=== PATIENT | male | born 1980 | race Caucasian/White ===

== ENCOUNTER 2017-02-22 12:51 | Emergency (ER) | payer OTHER ==
--- NOTE | ~2017-02-22 | CT4 ---
[facility] A Service of [facility] / [facility] RADIOLOGY TEXT RESULTS PATIENT: ERIKA CLOUD LOCATION: [facility] : [birth year] UNIT #: [id number] AGE: [address]: Dilan Cartwright MD SEX: M ORDER DR: [id number] [facility]. [place], [place] [address] [id number] E MR#: [id number] #: [id number] NAME: ERIKA CLOUD : 1980 SEX: M STUDY DATE/TIME: 02/22/2017 13:10 UNIT: [facility] ROOM: STUDY DESCRIPTION: CT Abd and Pelv Wo Cont Attending Physician: Dilan Cartwright M.D. Ordering Physician: Dilan Cartwright M.D. Primary Care Physician: Primary Care Physician No MEDICAL IMAGING REPORT This report is preliminary unless electronic signature is present EXAM CT abdomen and pelvis without contrast, 02/22/2017 HISTORY 36-year-old male with abdominal pain which started this morning. Left flank and mid abdominal pain. Previous history of pancreatitis. Asthma. COMPARISON None PROCEDURE 3.0 mm noncontrast axial images through the abdomen and pelvis. Enteric contrast was not administered. Sagittal and coronal reformatted images were obtained. TECHNIQUE This CT exam was performed with one or more of the following radiation dose reduction techniques: automatic exposure control, adjustment of mA and/or kV according to patient size, and iterative reconstruction. FINDINGS ABDOMEN FINDINGS: Coarse calcifications are seen within the pancreatic head suggesting changes of chronic calcific pancreatitis. No peripancreatic inflammatory stranding is seen. There is no evidence of acute pancreatitis at this time. A 2.0 mm stone is lodged in the proximal third of the left ureter, and there is mild left hydronephrosis. Nonobstructing 9.0 mm stone is seen within left mid kidney. No right renal or ureteral stones are identified. Lung bases are free of consolidation. Heart size is within normal limits. The liver, gallbladder, spleen, and adrenal glands are normal. Limited evaluation of bowel due to lack of enteric contrast. The appendix appears [facility] A Service of [facility] / [facility] RADIOLOGY TEXT RESULTS PATIENT: ERIKA CLOUD LOCATION: [facility] #: [id number] : [birth year] UNIT #: [id number] AGE: [address]: Dilan Cartwright MD SEX: M ORDER DR: normal. PELVIS FINDINGS: There is abnormal concentric thickening of the rectum extending nearly 6.6 cm craniocaudally. Rectal sidewall thickness at the 7 o'clock axis approximates 2.7 cm. Findings are worrisome for potential malignancy. Proctitis could have a similar appearance, there is no definite perirectal inflammatory stranding. Urinary bladder and prostate gland are normal. There is mild facet arthropathy on the left at L5-S1. No acute osseous abnormalities are identified. IMPRESSION 1. A 2.0 mm stone is seen in the proximal third of the left ureter resulting in mild left hydronephrosis. An additional 9.0 mm nonobstructing stone is seen within the left mid kidney. 2. Incidental finding of abnormal concentric thickening of the mid to lower rectum. While the findings could conceivably represent changes of proctitis, given the lack of associated perirectal inflammatory stranding, rectal malignancy must be considered in the differential. Correlation with direct visualization would be recommended. 3. Normal appendix. 4. Signs of chronic calcific pancreatitis within the pancreatic head. No CT evidence of acute pancreatitis at this time. Dictated by... Roula Bonds M.D. THIS IS AN ELECTRONICALLY VERIFIED REPORT Roula Bonds M.D. at 02/23/2017 7:24 AM Abimael TD: 02/22/2017 14:23 JOB #: [id number] MEDICAL IMAGING REPORT Page 1 of 1 COPY
[2017-02-22 12:27] LABS: POC - CKMB 2.3 ng/mL (0.0-7.9); POC - TROPONIN <0.05 ng/mL (<=0.05)
[2017-02-22 12:42] LABS: BASOPHIL% 0.2 % (0-2.5); EOSINOPHIL# 0.1 X10e3 (0-0.7); HEMOGLOBIN 14.5 gm/dL (13.0-16.0); LYMPHOCYTE% 24.4 % (17.0-45.0); MEAN CELL VOLUME 84.7 FL (83-96); MEAN CORPUSCULAR HEMOGLOBIN 29.2 PG (28-34); MEAN CORPUSCULAR HGB CONC 34.5 g/dL (30-36); MEAN PLATELET VOLUME 8.5 FL (6.5-11.5); MONOCYTE# 0.4 X10e3 (0-1.0); MONOCYTE% 5.3 % (3.0-12.0); NEUTROPHIL# 5.5 X10e3 (1.5-7.1); NEUTROPHIL% 69.1 % (40-75); PLATELET COUNT 202 X10e3 (140-420); RED BLOOD COUNT 4.96 X10e (3.90-5.60); RED CELL DISTRIBUTION WIDTH 13.7 % (11.0-15.5)
[2017-02-22 12:51] LABS: DIFF IND NO
[2017-02-22 13:05] LABS: ALBUMIN SERUM 4.6 g/dL (3.5-5.0); BILIRUBIN, DIRECT 0.1 mg/dL (0.0-0.2); BILIRUBIN,INDIRECT 0.7 mg/dL (0.0-0.9); BILIRUBIN,TOTAL 0.8 mg/dL (0.2-2.0); CALCIUM SERUM 9.9 mg/dL (8.4-10.2); GLOM FILT RATE Estimated 97.8 mL/min (>60); POTASSIUM 3.7 mmol/L (3.5-5.1); PROTEIN TOTAL SERUM 7.7 g/dL (6.0-8.3)
[2017-02-22 14:14] LABS: URINE SOURCE CLEAN CATCH
[2017-02-22 14:19] LABS: URINE BILIRUBIN NEG (NEG); URINE BLOOD 3+ (NEG); URINE COLOR YELLOW; URINE GLUCOSE NEG (NEG); URINE KETONE NEG (NEG); URINE LEUKOCYTE ESTERASE NEG (NEG); URINE NITRATE NEG (NEG); URINE PROTEIN NEG (NEG); URINE SPECIFIC GRAVITY 1.014 (1.003-1.035); URINE UROBILINOGEN 0.2 MG/DL (NEG)
[2017-02-22 14:21] LABS: URINE PH 9.5 (5-8)
[2017-02-22 14:22] LABS: URBCS1 AUWI 200-300 /[HPF] (0-2); URINE BACTERIA AUWI NEG (NEGATIVE); URINE SQUAMOUS EPITHELIAL CELL NONE SEEN /[HPF]; UWBCS1 AUWI 0-2 (0-5)
== END 2017-02-22 14:52 | disposition home or self-care (01) ==
LOC: CED 12:51
PROVIDERS: Emergency Medicine
DX: N13.2 Hydronephrosis with renal and ureteral calculous obstruction (principal); Z88.0 Allergy status to penicillin; Z88.2 Allergy status to sulfonamides; Z88.8 Allergy status to other drugs, medicaments and biological substances
CPT/HCPCS: 36415; 74176; 80048; 80076; 81003; 82150; 82553; 83690; 84484; 85025; 96361; 96374; 96375; 99284; J1885; J2270; J2405

== ENCOUNTER 2017-02-26 14:07 | Emergency (ER) | payer OTHER ==
--- NOTE | ~2017-02-26 | CT4 ---
[facility] A Service of [facility] & [facility] RADIOLOGY TEXT RESULTS PATIENT: ERIKA CLOUD LOCATION: [facility] : 84 UNIT #: [id number] AGE: [address]: Greyson Srivastava MD SEX: M ORDER DR: [id number] [facility] [address] [place], [place] [address] [id number] E MR#: [id number] #: [id number] NAME: ERIKA CLOUD : 1980 SEX: M STUDY DATE/TIME: 02/26/2017 14:45 UNIT: [facility] ROOM: STUDY DESCRIPTION: CT Abd and Pelv Wo Cont Attending Physician: Greyson Srivastava M.D. Ordering Physician: Greyson [id number] Payal Srivastava Primary Care Physician: Primary Care Physician No MEDICAL IMAGING REPORT This report is preliminary unless electronic signature is present EXAM CT abdomen and pelvis without IV contrast COMPARISON February 22, 2017. INDICATIONS 36-year-old male with increasing left pelvic pain over the last 4 days. Urinary hesitancy and hematuria. FINDINGS Axial CT imaging of the abdomen and pelvis was performed without IV contrast. Coronal and sagittal reformats were constructed. Lack of IV contrast limits evaluation of adenopathy, vasculature and viscera. This CT exam was performed with one or more of the following radiation dose reduction techniques: Automatic exposure control, adjustment of mA and/or kV according to patient size, and iterative reconstruction. Mild degenerative facet disease L5-S1. Small posterior disc-osteophyte complex at this level. No acute fractures or suspicious osseous lesions. There is mild levoscoliosis of the lumbar spine. No acute findings in the lower chest. Unenhanced liver, gallbladder, spleen and adrenal glands unremarkable. There are calcium densities in the head and uncinate process of the pancreas suggesting chronic pancreatitis. No convincing evidence of an acute pancreatitis. There is fatty replacement of the pancreas. There are 1 or possibly 2 adjacent calculi in the left kidney measuring up to 1 cm, nonobstructive. Since February 22, 2017, there has been migration of the left ureteral calculus, now seen within the distal left ureter just above the ureterovesical junction measuring up to approximately 4 mm. There is associated mild left hydroureter as well as mild left hydronephrosis, which has not changed appreciably from comparison. Urinary bladder is unremarkable. Prostate gland is unremarkable. There are bilateral pelvic phleboliths. Thickening of the STS. [facility] A Service of [facility] & [facility] RADIOLOGY TEXT RESULTS PATIENT: ERIKA CLUOD LOCATION: [facility] : 84 UNIT #: [id number] AGE: [address]: Greyson Srivastava MD SEX: M ORDER DR: rectal wall is again noted and appears grossly stable from February 22, 2017. There is no evidence of associated inflammatory change. There is a new small amount of free pelvic fluid. No evidence of bowel obstruction. Normal bowel caliber. No pneumoperitoneum. No adenopathy. Appendix is not definitively seen and may be surgically absent. No secondary findings of an acute appendicitis. IMPRESSION 1. Interval migration of a 4 mm calculus in the left ureter, now located just above the ureterovesical junction. There is grossly stable left hydronephrosis and hydroureter, mild. Stable nonobstructive calculus versus 2 adjacent calculi measuring up to 1 cm in conglomerate in the left kidney, nonobstructive. 2. Grossly stable mild thickening of the rectal wall. Neoplasm cannot entirely be excluded. See comparison CT abdomen/pelvis report on February 22, 2017 for followup recommendations. 3. Findings suggestive of chronic pancreatitis including calcifications within the pancreatic head and uncinate process. No convincing evidence of an acute pancreatitis. 4. Degenerative disc and degenerative facet disease L5-S1. 5. New small amount of free fluid in the pelvis. Dictated by... Chris Tovar M.D. THIS IS AN ELECTRONICALLY VERIFIED REPORT Chris Tovar M.D. at 03/02/2017 9:07 AM VANDANA/jung TD: 02/26/2017 17:18 JOB #: [id number] MEDICAL IMAGING REPORT Page 1 of 1 COPY
[2017-02-26 14:15] LABS: BASOPHIL% 0.3 % (0-2.5); EOSINOPHIL# 0.2 X10e3 (0-0.7); EOSINOPHIL% 2.9 % (0.0-7.0); HEMATOCRIT 39.2 % (38.0-50.0); HEMOGLOBIN 13.2 gm/dL (13.0-16.0); LYMPHOCYTE# 1.6 X10e3 (1.0-3.5); LYMPHOCYTE% 20.5 % (17.0-45.0); MEAN CORPUSCULAR HEMOGLOBIN 28.9 PG (28-34); MEAN CORPUSCULAR HGB CONC 33.6 g/dL (30-36); MEAN PLATELET VOLUME 8.1 FL (6.5-11.5); MONOCYTE# 0.7 X10e3 (0-1.0); MONOCYTE% 8.3 % (3.0-12.0); NEUTROPHIL# 5.5 X10e3 (1.5-7.1); PLATELET COUNT 183 X10e3 (140-420); RED BLOOD COUNT 4.56 X10e (3.90-5.60); RED CELL DISTRIBUTION WIDTH 13.6 % (11.0-15.5)
[2017-02-26 14:17] LABS: DIFF IND NO
[2017-02-26 14:36] LABS: ALBUMIN SERUM 4.1 g/dL (3.5-5.0); BILIRUBIN, DIRECT 0.1 mg/dL (0.0-0.2); BILIRUBIN,INDIRECT 0.8 mg/dL (0.0-0.9); BILIRUBIN,TOTAL 0.9 mg/dL (0.2-2.0); BUN/CREATININE RATIO 15.38; CREATININE SERUM 1.3 mg/dL (0.6-1.4); GLOM FILT RATE Estimated 71.2 mL/min (>60); POTASSIUM 4.2 mmol/L (3.5-5.1); PROTEIN TOTAL SERUM 6.9 g/dL (6.0-8.3)
[2017-02-26 15:32] LABS: URINE SOURCE CLEAN CATCH
[2017-02-26 15:41] LABS: URINE APPEARANCE CLEAR; URINE BILIRUBIN NEG (NEG); URINE BLOOD 3+ (NEG); URINE COLOR DK YELLOW; URINE GLUCOSE NEG (NEG); URINE KETONE NEG (NEG); URINE LEUKOCYTE ESTERASE NEG (NEG); URINE NITRATE NEG (NEG); URINE PH 6.5 (5-8); URINE PROTEIN NEG (NEG); URINE SPECIFIC GRAVITY 1.011 (1.003-1.035); URINE UROBILINOGEN 0.2 MG/DL (NEG)
[2017-02-26 15:44] LABS: URBCS1 AUWI 25-50 /[HPF] (0-2); URINE BACTERIA AUWI NEG (NEGATIVE); URINE SQUAMOUS EPITHELIAL CELL NONE SEEN /[HPF]; UWBCS1 AUWI 0-2 (0-5)
[2017-02-26 15:45] LABS: CULTURE INDICATED? NO
== END 2017-02-26 16:45 | disposition home or self-care (01) ==
LOC: CED 14:07
PROVIDERS: Emergency Medicine
DX: N13.2 Hydronephrosis with renal and ureteral calculous obstruction (principal); J45.909 Unspecified asthma, uncomplicated; Z88.0 Allergy status to penicillin; Z88.2 Allergy status to sulfonamides
CPT/HCPCS: 36415; 74176; 80048; 80076; 81003; 85025; 96361; 96374; 96375; 99284; J1885